=== PATIENT | female | born 1975 | race Caucasian/White ===

== ENCOUNTER 2016-08-24 20:36 | Emergency (ER) | payer BC ==
[2016-08-24] MEDS ORDERED: Ibuprofen TAB* 600 MG PO ONE (20:55)
--- NOTE | 2016-08-24 21:32 | RAD ---
INDICATION: Left ankle injury. TECHNIQUE: 3 views of the left ankle were obtained. FINDINGS: Soft tissue swelling is noted along the anterolateral aspect of the ankle. No fracture is seen. Joint spaces appear maintained. IMPRESSION: SOFT TISSUE SWELLING, NO FRACTURE IS SEEN.
[2016-08-24] MEDS ORDERED: Acetaminop/Codeine 30 MG TAB* 1 TAB (300 MG/30 MG) PO ONE (21:33)
--- NOTE | 2016-08-24 21:41 | UC ---
Lower Extremity/Ankle HPI - HPI Summary HPI Summary: left lateral ankle pain after stepping off a step about 30minutes Prior to arrival - History of Current Complaint Chief Complaint: UCLowerExtremity Stated Complaint: LEFT ANKLE PAIN Time Seen by Provider: 08/24/16 20:51 Hx Obtained From: Patient Hx Last Menstrual Period: IUD ?: No Onset/Duration: Sudden Onset, Lasting Minutes - 30, Still Present Severity Initially: Moderate Severity Currently: Moderate Pain Intensity: 6 Pain Scale Used: 0-10 Numeric Aggravating Factor(s): Standing, Ambulation Alleviating Factor(s): Rest, Elevation, Ice Able to Bear Weight: Yes - with pain - Allergies/Home Medications Allergies/Adverse Reactions: Allergies Allergy/AdvReac Type Severity Reaction Status Date / Time No Known Allergies Allergy Verified 08/24/16 20:48 PMH/Surg Hx/FS Hx/Imm Hx Previously Healthy: No Cardiovascular History Of: Reports: Hypertension - no tcurrently on medication - Surgical History Surgical History: Yes Surgery Procedure, Year, and Place: RIGHT KNEE SURGERY X2 - Family History Known Family History: Positive: None - Social History Occupation: Employed Full-time - [employer] at [employer] Lives: With Family Alcohol Use: Rare Substance Use Type: None Smoking Status (MU): Never Smoked Tobacco Review of Systems Constitutional: Negative Skin: Negative Eyes: Negative ENT: Negative Respiratory: Negative Cardiovascular: Negative Gastrointestinal: Negative Genitourinary: Negative Motor: Negative Neurovascular: Negative Musculoskeletal: Arthralgia - lateral left ankle, Edema - lateral left ankle Neurological: Negative Psychological: Negative All Other Systems Reviewed And Are Negative: Yes Physical Exam Triage Information Reviewed: Yes Appearance: Well-Appearing, Pain Distress - mild, Obese Vital Signs: Initial Vital Signs Temp 96.7 F 08/24/16 20:44 Pulse 82 08/24/16 20:44 Resp 18 08/24/16 20:44 BP 176/119 08/24/16 20:44 Pulse Ox 100 08/24/16 20:44 Vital Signs Reviewed: Yes Eye Exam: Normal Eyes: Positive: Conjunctiva Clear ENT Exam: Normal ENT: Positive: Normal ENT inspection, Hearing grossly normal. Negative: Nasal congestion, Nasal drainage, Trismus, Muffled/hoarse voice Neck exam: Normal Neck: Positive: Supple, Nontender, No Lymphadenopathy Respiratory Exam: Normal Respiratory: Positive: Chest non-tender, Lungs clear, Normal breath sounds, No respiratory distress, No accessory muscle use Cardiovascular Exam: Normal Cardiovascular: Positive: RRR, Pulses Normal, Brisk Capillary Refill Musculoskeletal Exam: Normal Musculoskeletal: Positive: Strength Intact, ROM Intact, Edema @ - right ankle Neurological Exam: Normal Neurological: Positive: Alert, Muscle Tone Normal Psychological Exam: Normal Skin Exam: Normal Diagnostics - Radiology No standard instances Xray Interpretation: No Acute Changes Radiology Interpretation Completed By: ED Physician, Radiologist Lower Extremity Course/Dx - Course Course Of Treatment: rice, pain control, crutches ozzy gel splint, re-check bp follow with pcp and ortho - Differential Dx/Diagnosis Differential Diagnosis/HQI/PQRI: Contusion, Fracture (Closed), Sprain, Strain Provider Diagnoses: Left ankle sprain, hypertension Discharge - Discharge Plan Condition: Stable Disposition: HOME Prescriptions: Acetaminop/Codeine 30 MG TAB* [Tylenol/Codeine 30 MG TAB*] 1 - 2 tab PO Q6H PRN #24 tab MDD 8 PRN Reason: pain Patient Education Materials: Ankle Sprain (ED), Crutch Instructions (ED), Ankle Stirrup Splint (ED), DASH Eating Plan (ED), Hypertension (ED), RICE Therapy (ED) Referrals: [facility] [place] [facility] REFERRAL [Outside] - 3 Days (for blood pressure re-check) Eyad Phillips MD [Medical Doctor] - 5 Days No Primary Care Phys,NOPCP [Primary Care Provider] -
[2016-08-24 22:02] VITALS: BP 153/89
== END 2016-08-24 21:55 | disposition home or self-care (01) ==
LOC: UCEAST 20:36
DX: S93.402A Sprain of unspecified ligament of left ankle, initial encounter (principal); X58.XXXA Exposure to other specified factors, initial encounter; Y93.9 Activity, unspecified; Y92.9 Unspecified place or not applicable; I10 Essential (primary) hypertension
CPT/HCPCS: 99203; A9270-GY; G0463